=== PATIENT | female | born 1965 | race Caucasian/White ===

== ENCOUNTER 2019-03-21 16:48 | Emergency (ER) | payer SELFPAY ==
--- NOTE | 2019-03-21 18:03 | ER Document Report ---
ED Medical Screen (RME) - General Chief Complaint: Hand Swelling Stated Complaint: LEFT HAND SWELLING Time Seen by Provider: 03/21/19 17:50 Mode of Arrival: Ambulatory Information source: Patient Notes: 53-year-old female with no past medical history presents emergency department with complaints of joint swelling with erythema since December. She reports her hands will swell at the joints and go down then her knee will swell with erythema and then her shoulder. She denies history of tick bite. She denies fever vomiting diarrhea. She denies history of gout. Patient has erythema warmth to the left third and fourth MPJ. Patient has an appointment with her primary care provider March 30. I have greeted and performed a rapid initial assessment of this patient. A comprehensive ED assessment and evaluation of the patient, analysis of test results and completion of the medical decision making process will be conducted by additional ED providers. TRAVEL OUTSIDE OF THE [place] IN LAST 30 DAYS: No - Related Data Allergies/Adverse Reactions: No Known Allergies Allergy (Verified 03/21/19 17:43) Past Medical History - Social History Chew tobacco use (# tins/day): No Frequency of alcohol use: None Drug Abuse: None - Past Medical History Cardiac Medical History: Reports: Hx Hypertension Physical Exam - Vital signs Vitals: Temp Pulse Resp BP Pulse Ox 97.8 F 85 18 174/91 H 96 03/21/19 16:57 03/21/19 16:57 03/21/19 16:57 03/21/19 16:57 03/21/19 16:57 Course - Vital Signs Vital signs: Temp Pulse Resp BP Pulse Ox 97.8 F 85 18 174/91 H 96 03/21/19 16:57 03/21/19 16:57 03/21/19 16:57 03/21/19 16:57 03/21/19 16:57
--- NOTE | 2019-03-21 18:09 | ER Document Report ---
HPI - HPI Time Seen by Provider: 03/21/19 17:50 Pain Level: 3 Context: 53-year-old female with no past medical history presents emergency department with complaints of joint swelling with erythema since December. She reports her hands will swell at the joints and go down then her knee will swell with erythema and then her shoulder. She denies history of tick bite. She denies fever vomiting diarrhea. She denies history of gout. Patient has erythema warmth to the left third and fourth MPJ. Patient has an appointment with her primary care provider March 30. - REPRODUCTIVE Reproductive: DENIES: : Past Medical History - General Information source: Patient - Social History Smoking Status: Current Every Day Smoker Chew tobacco use (# tins/day): No Frequency of alcohol use: None Drug Abuse: None Family History: Reviewed & Not Pertinent Patient has suicidal ideation: No Patient has homicidal ideation: No - Past Medical History Cardiac Medical History: Reports: Hx Hypertension Vertical Provider Document - INFECTION CONTROL TRAVEL OUTSIDE OF THE [place] IN LAST 30 DAYS: No Course - Re-evaluation Re-evalutation: 03/21/19 20:14 H&H elevated with minimal leukocytosis. X-ray negative. Possible symptoms due to arthritis. Patient was instructed on the importance of fluids. CRP elevated with negative sed rate. TED still pending. Patient instructed on labs. She has an with Dr. Francois on March 30. She was instructed to follow-up with him take Advil or Motrin as indicated for pain warm compresses return for concerns. Laboratory 03/21/19 03/21/19 18:35 18:35 WBC 11.8 H RBC 5.44 H Hgb 16.6 H Hct 48.6 H MCV 89 MCH 30.6 MCHC 34.2 RDW 13.9 Plt Count 336 Lymph % (Auto) 29.2 Graves % (Auto) 6.3 Eos % (Auto) 0.9 Baso % (Auto) 0.5 Absolute Neuts (auto) 7.4 Absolute Lymphs (auto) 3.4 Absolute Monos (auto) 0.7 Absolute Eos (auto) 0.1 Absolute Basos (auto) 0.1 Seg Neutrophils % 63.1 ESR 27 Sodium 139.3 Potassium 4.5 Chloride 102 Carbon Dioxide 30 Anion Gap 7 BUN 10 Creatinine 0.67 Est GFR ( Amer) > 60 Est GFR (MDRD) Non-Af > 60 Glucose 70 L Uric Acid 5.9 Calcium 10.1 Total Bilirubin 0.5 Direct Bilirubin 0.0 Neonat Total Bilirubin Not Reportable Neonat Direct Bilirubin Not Reportable Neonat Indirect Bili Not Reportable AST 22 ALT 20 Alkaline Phosphatase 80 C-Reactive Protein 13.6 H Total Protein 7.8 Albumin 4.8 Hand X-Ray 03/21/19 18:08 IMPRESSION: NO SIGNIFICANT RADIOGRAPHIC ABNORMALITY. 03/21/19 20:31 - Vital Signs Vital signs: Temp Pulse Resp BP Pulse Ox 97.8 F 85 18 174/91 H 96 03/21/19 16:57 03/21/19 16:57 03/21/19 16:57 03/21/19 16:57 03/21/19 16:57 - Laboratory Result Diagrams: 03/21/19 18:35 03/21/19 18:35 - Diagnostic Test Radiology reviewed: Image reviewed, Reports reviewed Discharge - Discharge Clinical Impression: Left hand pain, polyarticular pain Condition: Stable Disposition: HOME, SELF-CARE Instructions: Use of [id number]-[id number] Ibuprofen ([facility]) Additional Instructions: *You have been evaluated for left hand pain, polyarticular pain * Your x-ray was negative for any acute fracture *Follow up with Dr. Francois as scheduled this week *Take ibuprofen as indicated for pain *Return to ED for worsening condition, changes, needs Monitor your blood pressure. Your blood pressure was elevated today. This may be because you were anxious, in pain or because you need medication. It is important to follow up with your primary care provider for full evaluation. Forms: Elevated Blood Pressure
--- NOTE | 2019-03-21 18:55 | RADIOLOGY REPORT (SQ) ---
EXAM DESCRIPTION: HAND LEFT 3 VIEWS COMPLETED DATE/TIME: 03/21/2019 6:46 pm REASON FOR STUDY: pain swelling erythema COMPARISON: None. EXAM PARAMETERS: NUMBER OF VIEWS: Three views. TECHNIQUE: AP, lateral and oblique radiographic images acquired of the left hand. LIMITATIONS: None. FINDINGS: MINERALIZATION: Normal. BONES: No acute fracture or dislocation. Mild chronic deformity of the distal end of the middle phal anx of the 5th finger. No worrisome bone lesions. No significant osteophytes. JOINTS: No erosions. No kim-articular osteopenia. No chondrocalcinosis. SOFT TISSUES: No swelling. No calcifications. OTHER: No other significant finding. IMPRESSION: NO SIGNIFICANT RADIOGRAPHIC ABNORMALITY. TECHNICAL DOCUMENTATION: JOB ID: [id number] [employer]- All Rights Reserved Reading location - IP/workstation name: [email or web address]
[2019-03-21 19:21] LABS: ABSOLUTE BASOPHILS # (AUTO) 0.1 10^3/uL (0.0-0.2); ABSOLUTE EOSINOPHILS # (AUTO) 0.1 10^3/uL (0.0-0.6); ABSOLUTE LYMPHOCYTES (AUTO) 3.4 10^3/uL (0.5-4.7); ABSOLUTE MONOCYTES (AUTO) 0.7 10^3/uL (0.1-1.4); ABSOLUTE NEUT (AUTO) 7.4 10^3/uL (1.7-8.2); BASOPHILS % (AUTO) 0.5 % (0-2); EOSINOPHILS % (AUTO) 0.9 % (0-6); HEMATOCRIT 48.6 % (36.0-47.0); HEMOGLOBIN 16.6 g/dL (12.0-15.5); LYMPHOCYTES % (AUTO) 29.2 % (13-45); MEAN CORPUSCULAR HEMOGLOBIN 30.6 pg (27.0-33.4); MEAN CORPUSCULAR HGB CONC 34.2 g/dL (32.0-36.0); MEAN CORPUSCULAR VOLUME 89 fl (80-97); MONOCYTES % (AUTO) 6.3 % (3-13); PLATELET COUNT 336 10^3/uL (150-450); RED BLOOD COUNT 5.44 10^6/uL (3.72-5.28); RED CELL DISTRIBUTION WIDTH 13.9 % (11.5-14.0); SEGMENTED NEUTROPHILS % (AUTO) 63.1 % (42-78); TOTAL CELLS COUNTED % (AUTO) 100 %; WHITE BLOOD COUNT 11.8 10^3/uL (4.0-10.5)
[2019-03-21 19:33] LABS: ALBUMIN 4.8 g/dL (3.5-5.0); ALKALINE PHOSPHATASE 80 U/L (38-126); ANION GAP 7 (5-19); ASPARTATE AMINO TRANSFERASE 22 U/L (14-36); BILIRUBIN,TOTAL 0.5 mg/dL (0.2-1.3); BLOOD UREA NITROGEN 10 mg/dL (7-20); C-REACTIVE PROTEIN 13.6 mg/L (<10.0); CALCIUM 10.1 mg/dL (8.4-10.2); CARBON DIOXIDE 30 mmol/L (22-30); CHLORIDE 102 mmol/L (98-107); GLUCOSE 70 mg/dL (75-110); POTASSIUM 4.5 mmol/L (3.6-5.0); TOTAL PROTEIN 7.8 g/dL (6.3-8.2); URIC ACID 5.9 mg/dL (2.5-7.5)
[2019-03-21 20:02] LABS: ERYTHROCYTE SEDIMENTATION RATE 27 mm/hr (0-30)
[2019-03-21 20:26] VITALS: BP 153/81
== END 2019-03-21 20:22 | disposition home or self-care (01) ==
LOC: ER 16:48
DX: M79.642 Pain in left hand (principal); M25.50 Pain in unspecified joint; F17.200 Nicotine dependence, unspecified, uncomplicated; I10 Essential (primary) hypertension
CPT/HCPCS: 36415; 80053; 84550; 85025; 85652; 86038; 86140; 86431